=== PATIENT | female | born 1980 | race Caucasian/White ===

== ENCOUNTER 2018-08-09 04:44 | Emergency (ER) | payer BC, OTHER ==
[2018-08-09] MEDS: NS 1,000 ML IV (06:24)
[2018-08-09] MEDS: ONDANSETRON 4MG/2ML VIAL (J2405) IV (06:24)
[2018-08-09] MEDS: MORPHINE 4 MG/ML 1ML VIAL/SYRINGE (J2270) IV ×2 (06:24→07:29)
[2018-08-09] MEDS ORDERED: LIDOCAINE 1% MDV 20ML VIAL As Ordered (07:24)
== END 2018-08-09 08:38 | disposition home or self-care (01) ==
LOC: M ED 04:44
DX: S52.572A Other intraarticular fracture of lower end of left radius, initial encounter for closed fracture (principal); W00.9XXA Unspecified fall due to ice and snow, initial encounter; Y93.H1 Activity, digging, shoveling and raking; Y92.009 Unspecified place in unspecified non-institutional (private) residence as the place of occurrence of the external cause; E03.9 Hypothyroidism, unspecified; Z79.890 Hormone replacement therapy
CPT/HCPCS: J2270